=== PATIENT | female | born 1985 | race African-American/Black ===

== ENCOUNTER 2022-05-18 14:14 | Emergency (ER) | payer MEDICAID ==
[~2022-05-18] VITALS: Ht 165.1 cm; Wt 91.0 kg
[~2022-05-18 14:14] MED LIST: PHEN100C4 PO
[2022-05-18 15:39] LABS: BASOPHILS % 0.5 % (0.0-2.0); EOSINOPHILS % 0.8 % (0.0-5.0); HEMATOCRIT. 41.2 % (36.0-48.0); HEMOGLOBIN. 13.4 g/dL (12.0-16.0); LYMPHOCYTES % 11.4 % (20.0-50.0); MEAN CORPUSCULAR HEMOGLOBIN 29.5 pg (28.0-32.0); MEAN CORPUSCULAR VOLUME 90.8 fL (81.0-99.0); MONOCYTES % 5.7 % (2.0-8.0); NEUTROPHILS % 81.6 % (40.0-76.0); RED BLOOD CELL COUNT 4.53 mill/uL (4.2-5.4); RED CELL DISTRIBUTION WIDTH 13.7 % (11.6-14.6)
[2022-05-18 15:40] LABS: CLARITY URINE CLEAR (CLEAR); COLOR URINE YELLOW (YELLOW); KETONES URINE NEGATIVE (NEGATIVE); LEUKOCYTE ESTERASE URINE NEGATIVE (NEGATIVE); NITRITE URINE NEGATIVE (NEGATIVE); OCCULT BLOOD URINE NEGATIVE (NEGATIVE); PH URINE 5.5 (4.5-8.0); PROTEIN URINE NEGATIVE (NEGATIVE); SPECIFIC GRAVITY URINE 1.024 (1.005-1.030); UROBILINOGEN URINE 0.2 E.U./dL (0.2-1.0)
[2022-05-18 16:07] LABS: *AMPHETAMINES SCREEN URINE NEGATIVE (NEGATIVE); *BARBITURATES SCREEN URINE NEGATIVE (NEGATIVE); *BENZODIAZEPINES SCREEN URINE NEGATIVE (NEGATIVE); *COCAINE SCREEN URINE NEGATIVE (NEGATIVE); CANNABINOID URINE SCREEN NEGATIVE (NEGATIVE); METHADONE URINE SCREEN NEGATIVE (NEGATIVE); OPIATES URINE SCREEN NEGATIVE (NEGATIVE); PHENCYCLIDINE URINE SCREEN NEGATIVE (NEGATIVE)
[2022-05-18 17:00] VITALS: BP 137/103
[2022-05-18 17:27] LABS: CHLORIDE 105 mEq/L (98-107)
[2022-05-18 17:34] LABS: ETHANOL BLOOD < 10 mg/dL
== END 2022-05-18 18:15 | disposition home or self-care (01) ==
LOC: ER 14:14
DX: G40.909 Epilepsy, unspecified, not intractable, without status epilepticus (principal); Z91.14 Patient's other noncompliance with medication regimen; R03.0 Elevated blood-pressure reading, without diagnosis of hypertension; D72.829 Elevated white blood cell count, unspecified
CPT/HCPCS: 36415; 80053; 80305; 80320; 81003; 81025; 85025; 99283; G0480

== ENCOUNTER 2022-08-18 20:06 | Emergency (ER) | payer MEDICAID ==
[~2022-08-18] VITALS: Ht 167.6 cm; Wt 134.0 kg
[2022-08-18] MEDS ORDERED: LEVETIRACETAM 1000MG PREMIX 100 ML IV ONE ×2 (21:15→22:45)
[2022-08-18] MEDS ORDERED: PHEN100C12 MT (22:09)
[2022-08-18] MEDS ORDERED: PHENYTOIN SODIUM EXTENDED 100MG CAPSULE PO ONE (22:15)
[2022-08-18 22:35] VITALS: BP 124/79
[2022-08-18] MEDS ORDERED: LEVETIRACETAM 1000MG PREMIX 100 ML IV NR (22:45)
[2022-08-18 22:46] LABS: BASOPHILS % 0.4 % (0.0-2.0); EOSINOPHILS % 1.2 % (0.0-5.0); HEMATOCRIT. 42.7 % (36.0-48.0); HEMOGLOBIN. 13.9 g/dL (12.0-16.0); LYMPHOCYTES % 18.3 % (20.0-50.0); MEAN CORPUSCULAR HEMOGLOBIN 29.4 pg (28.0-32.0); MEAN CORPUSCULAR VOLUME 89.9 fL (81.0-99.0); MEAN PLATELET VOLUME 8.3 fl (7.4-10.4); NEUTROPHILS % 72.1 % (40.0-76.0); PLATELET 354 x1000/uL (130-400); RED BLOOD CELL COUNT 4.75 mill/uL (4.2-5.4); RED CELL DISTRIBUTION WIDTH 14.6 % (11.6-14.6)
[2022-08-18 22:52] LABS: CHLORIDE 107 mEq/L (98-107)
[2022-08-18 23:00] LABS: HCG SCREEN NEGATIVE
== END 2022-08-19 00:44 | disposition home or self-care (01) ==
LOC: ER 20:06
DX: G40.909 Epilepsy, unspecified, not intractable, without status epilepticus (principal)
CPT/HCPCS: 36415; 80053; 84703; 85025; 96365; 99284; J1953; Z7610

== ENCOUNTER 2022-12-23 03:26 | Inpatient (IN) | payer MEDICAID ==
[~2022-12-23] VITALS: Ht 172.7 cm; Wt 111.1 kg
[~2022-12-23 03:26] MED LIST changes: +PHEN100C12 MT
[2022-12-23] MEDS ORDERED: ONDANSETRON HCL 4MG/2ML INJ IV STA (03:57)
[2022-12-23] MEDS ORDERED: LORAZEPAM 2MG/ML CPJ IV ONE (04:00)
[2022-12-23] MEDS ORDERED: SODIUM CHLORIDE 0.9% 1,000 ML IV ONE (04:00)
[2022-12-23 04:58] LABS: BASOPHILS % 0.8 % (0.0-2.0); HEMATOCRIT. 40.3 % (36.0-48.0); HEMOGLOBIN. 13.5 g/dL (12.0-16.0); LYMPHOCYTES % 11.2 % (20.0-50.0); MEAN CORPUSCULAR HEMOGLOBIN 30.2 pg (28.0-32.0); MEAN CORPUSCULAR HGB CONC 33.4 g/dL (31.0-37.0); MEAN CORPUSCULAR VOLUME 90.4 fL (81.0-99.0); MONOCYTES % 7.1 % (2.0-8.0); NEUTROPHILS % 79.9 % (40.0-76.0); PLATELET 299 x1000/uL (130-400); RED BLOOD CELL COUNT 4.46 mill/uL (4.2-5.4); RED CELL DISTRIBUTION WIDTH 14.1 % (11.6-14.6); WHITE BLOOD COUNT 10.7 x1000/uL (4.5-11.0)
[2022-12-23 05:11] LABS: CHLORIDE 107 mEq/L (98-107); INDEX HEMOLYSI 1 (1-3); INDEX ICTERIC 1 (1-4); INDEX LIPEMIC 1 (1-3); POTASSIUM 4.2 mEq/L (3.5-5.1); SODIUM 137 mEq/L (136-145)
[2022-12-23 05:28] LABS: ALANINE AMINOTRANSFERASE 24 IU/L (13-61); ALBUMIN 3.5 g/dL (3.4-5.0); ASPARTATE AMINOTRANSFERASE 16 IU/L (15-37); BILIRUBIN TOTAL 0.2 mg/dL (0.1-1.0); CARBON DIOXIDE 28 mEq/L (21-32); CREATININE 0.8 mg/dL (0.6-1.3); ETHANOL BLOOD < 10 mg/dL (-10); GLUCOSE 120 mg/dL (70-105); PROTEIN TOTAL 7.9 g/dL (6.0-8.3); UREA NITROGEN BLOOD 11 mg/dL (7-21)
[2022-12-23 05:37] LABS: PHENYTOIN 0.4 ug/mL (10-20)
[2022-12-23] MEDS ORDERED: GUAIFENESIN 200MG/10ML SUGAR FREE UDC PO PRN (09:45)
[2022-12-23] MEDS ORDERED: ACETAMINOPHEN 325MG TABLET PO PRN (09:45)
[2022-12-23] MEDS ORDERED: ONDANSETRON HCL 4MG/2ML INJ IV PRN (09:45)
[2022-12-23] MEDS ORDERED: LORAZEPAM 2MG/ML CPJ IV PRN (09:45)
[2022-12-23] MEDS ORDERED: NALOXONE HCL 0.4MG/ML VIAL IV PRN (09:45)
[2022-12-23] MEDS ORDERED: DOCUSATE SODIUM 100MG CAPSULE PO PRN (09:45)
[2022-12-23] MEDS ORDERED: PHENYTOIN SODIUM 500 MG in SODIUM CHLORIDE 0.9% 50 ML IV NR (10:00)
[2022-12-23 11:08] VITALS: BP 139/69; PULSE 67; RESP 20; TEMP 97.8
[2022-12-23] MEDS: SODIUM CHLORIDE 0.45% 1,000 ML IV SCH (13:10)
[2022-12-23] MEDS: TRAMADOL 50MG TABLET PO PRN ×2 (13:14→19:27)
[2022-12-23 16:00] VITALS: BP 111/67; PULSE 75; RESP 20; TEMP 97.2
[2022-12-23 20:00] VITALS: BP 109/77; PULSE 79; RESP 20; TEMP 99.3
[2022-12-24] VITALS: BP 130/75; PULSE 75; RESP 20; TEMP 99.1
[2022-12-24] MEDS: TRAMADOL 50MG TABLET PO PRN (01:51)
[2022-12-24] MEDS: SODIUM CHLORIDE 0.45% 1,000 ML IV SCH (01:52)
[2022-12-24 04:00] VITALS: BP 121/74; PULSE 74; RESP 20; TEMP 99
[2022-12-24 06:26] LABS: BASOPHILS % 0.2 % (0.0-2.0); EOSINOPHILS % 2.5 % (0.0-5.0); HEMATOCRIT. 39.8 % (36.0-48.0); HEMOGLOBIN. 13.6 g/dL (12.0-16.0); LYMPHOCYTES % 18.3 % (20.0-50.0); MEAN CORPUSCULAR HEMOGLOBIN 30.8 pg (28.0-32.0); MEAN CORPUSCULAR HGB CONC 34.3 g/dL (31.0-37.0); MEAN CORPUSCULAR VOLUME 89.9 fL (81.0-99.0); MEAN PLATELET VOLUME 8.4 fl (7.4-10.4); MONOCYTES % 9.2 % (2.0-8.0); NEUTROPHILS % 69.8 % (40.0-76.0); PLATELET 268 x1000/uL (130-400); RED BLOOD CELL COUNT 4.42 mill/uL (4.2-5.4); RED CELL DISTRIBUTION WIDTH 14.2 % (11.6-14.6); WHITE BLOOD COUNT 10.1 x1000/uL (4.5-11.0)
[2022-12-24 07:00] LABS: CHLORIDE 105 mEq/L (98-107); INDEX HEMOLYSI 1 (1-3); INDEX ICTERIC 1 (1-4); INDEX LIPEMIC 1 (1-3); POTASSIUM 3.6 mEq/L (3.5-5.1); SODIUM 136 mEq/L (136-145)
[2022-12-24 07:19] LABS: ALANINE AMINOTRANSFERASE 21 IU/L (13-61); ALBUMIN 2.9 g/dL (3.4-5.0); ASPARTATE AMINOTRANSFERASE 14 IU/L (15-37); CHOLESTEROL 139 mg/dL (<200); TRIGLYCERIDE 62 mg/dL (0-150)
[2022-12-24 08:00] VITALS: BP 114/71; PULSE 86; RESP 20; TEMP 97.6
[2022-12-24] MEDS ORDERED: PHENYTOIN SODIUM EXTENDED 100MG CAPSULE PO SCH (09:00)
[2022-12-24 09:23] LABS: BILIRUBIN TOTAL 0.2 mg/dL (0.1-1.0); CALCIUM 8.9 mg/dL (8.5-10.1); CARBON DIOXIDE 27 mEq/L (21-32); CREATININE 0.7 mg/dL (0.6-1.3); GLUCOSE 80 mg/dL (70-105); HDL CHOLESTEROL 60 mg/dL (40-59); LDL CHOLESTEROL 78 mg/dL (5-100); PHENYTOIN 2.8 ug/mL (10-20); PROTEIN TOTAL 6.9 g/dL (6.0-8.3); UREA NITROGEN BLOOD 12 mg/dL (7-21)
[2022-12-24 10:27] VITALS: BP 114/71; PULSE 86; TEMP 97.6; O2SAT 99
[2022-12-24 12:00] VITALS: BP 118/78; PULSE 88; RESP 20; TEMP 98
== END 2022-12-24 10:45 | disposition home or self-care (01) | DRG 53 ==
LOC: ER 04:37 → 7WST 04:54
PROVIDERS: ADMIT Hospitalist; ATTEND Hospitalist
DX: G40.401 Other generalized epilepsy and epileptic syndromes, not intractable, with status epilepticus (principal); E11.9 Type 2 diabetes mellitus without complications; E66.9 Obesity, unspecified; Z68.37 Body mass index [BMI] 37.0-37.9, adult
CPT/HCPCS: 36415; 73502; 73552; 73562; 80053; 80061; 80185; 80320; 82962; 85025; 93005; 99285; C1893; J1165; J2060; J2405; J7030; G0480